=== PATIENT | male | born 1985 | race Two or more races ===

== ENCOUNTER 2024-02-23 22:43 | Emergency (ER) | payer OTHER ==
[2024-02-23 22:49] VITALS: RESP 16
[2024-02-23 22:57] VITALS: BP 152/92; PULSE 96; TEMP 98.1
[2024-02-23 23:02] VITALS: BMI 27.6
== END 2024-02-23 23:02 | disposition home or self-care (01) ==
LOC: FER 22:43
DX: S86.912A Strain of unspecified muscle(s) and tendon(s) at lower leg level, left leg, initial encounter (principal); X50.1XXA Overexertion from prolonged static or awkward postures, initial encounter
CPT/HCPCS: 99283-25

== ENCOUNTER 2024-04-23 05:47 | Emergency (ER) | payer OTHER ==
[2024-04-23 06:07] VITALS: BP 166/102; PULSE 114; RESP 18; TEMP 97.9; BMI 27.6
[2024-04-23] MEDS ORDERED: KETOROLAC TROMETHAMINE 30 MG/1 ML VIAL ONE (06:07)
[2024-04-23] MEDS: KETOROLAC TROMETHAMINE 30 MG/1 ML VIAL IM ONE (06:25)
== END 2024-04-23 11:09 | disposition home or self-care (01) ==
LOC: FER 05:47
PROC: 3E0133Z Introduction of Anti-inflammatory into Subcutaneous Tissue, Percutaneous Approach (ICD-10-PCS; principal; 2024-04-23)
DX: M54.2 Cervicalgia (principal); R51.9 Headache, unspecified; M79.642 Pain in left hand; Y35.811A Legal intervention involving manhandling, law enforcement official injured, initial encounter
CPT/HCPCS: 70450-TC; 70486-TC; 72125-TC; 73130-TC-LT-FY; 73562-TC-RT-FY; 99284-25

== ENCOUNTER 2025-03-09 20:27 | Emergency (ER) | payer OTHER ==
[2025-03-09 21:05] VITALS: BP 131/84; PULSE 131; RESP 18; TEMP 97.3; BMI 27.6
[2025-03-09] MEDS ORDERED: DIPHTH,PERTUSS(ACELL),TET 0.5 ML DISP.SYRIN IM ONE (21:09)
[2025-03-09] MEDS: DIPHTH,PERTUSS(ACELL),TET 0.5 ML DISP.SYRIN IM ONE (21:14)
== END 2025-03-09 21:19 | disposition home or self-care (01) ==
LOC: FER 20:27
PROC: 3E0234Z Introduction of Serum, Toxoid and Vaccine into Muscle, Percutaneous Approach (ICD-10-PCS; principal; 2025-03-09)
DX: S00.83XA Contusion of other part of head, initial encounter (principal); S50.811A Abrasion of right forearm, initial encounter; S50.812A Abrasion of left forearm, initial encounter; S80.211A Abrasion, right knee, initial encounter; S80.212A Abrasion, left knee, initial encounter; Z23 Encounter for immunization; Y35.891A Legal intervention involving other specified means, law enforcement official injured, initial encounter; Y92.410 Unspecified street and highway as the place of occurrence of the external cause
CPT/HCPCS: 90715; 99284-25